=== PATIENT | female | born 2000 | race Two or more races ===

== ENCOUNTER 2025-01-02 18:40 | Emergency (ER) | payer MEDICAID, SELFPAY ==
[2025-01-02 18:57] VITALS: BP 130/80; PULSE 77; RESP 20; TEMP 37.1; O2SAT 96; BMI 20.5
--- NOTE | 2025-01-02 19:01 | PD.EDRME ---
Rapid Medical Screening Exam RME Arrival date/time: 01/02/25 18:40 Chief Complaint: Abdominal Pain Time Seen by Provider: 01/02/25 18:51 Vital signs: Vital Signs Temperature 98.7 F 01/02/25 18:57 Pulse Rate 77 01/02/25 18:57 Respiratory Rate 20 01/02/25 18:57 Blood Pressure 130/80 01/02/25 18:57 Pulse Oximetry (%) 96 01/02/25 18:57 Oxygen Delivery Method Room Air 01/02/25 18:57 [facility] Narrative: N/V all day today. Patient reports too much EtOH last night.
[2025-01-02 19:28] LABS: Basophils # (Auto) 0.1 Thou/mm3 (0.0-0.2); Basophils % (Auto) 0 % (0-2.5); Eosinophils # (Auto) 1.6 Thou/mm3 (0.0-0.5); Eosinophils % (Auto) 10 % (0-10); Hematocrit 41.6 % (36.0-46.0); Hemoglobin 15.1 g/dL (12.0-16.0); Immature Granulocytes % (Auto) 0 % (0-0); Immature Granulocytes Auto 0.06 Thou/mm3 (0.00-0.00); Lymphocytes # (Auto) 0.7 Thou/mm3 (1.0-4.8); Lymphocytes % (Auto) 4 % (10-50); Mean Corpuscular HGB Conc 36.3 g/dl (31.0-37.0); Mean Corpuscular Hemoglobin 31.3 pg (25.0-35.0); Mean Corpuscular Volume 86 fL (80-100); Monocytes # (Auto) 0.6 Thou/mm3 (0.0-0.8); Monocytes % (Auto) 3 % (0-12); Neutrophils # (Auto) 13.6 Thou/mm3 (1.8-7.7); Neutrophils % (Auto) 82 % (37-80); Nucleated Red Blood Cell % 0 /100 WBC (0); Platelet Count 255 Thou/mm3 (140-440); RDW Standard Deviation 40.4 fL (36.4-46.3); Red Blood Count 4.83 Miln/mm3 (4.00-5.20); White Blood Count 16.5 Thou/mm3 (3.6-11.0)
[2025-01-02] MEDS: ONDANSETRON ODT 4 MG TABRAP PO (19:32)
[2025-01-02 19:40] LABS: Collection Type, Urine Clean Catch
[2025-01-02 19:45] LABS: HCG Qualitative,Urine Negative
[2025-01-02 19:48] LABS: Bacteria,Urine Rare; Bilirubin,Urine Negative (Negative); Blood,Urine Negative (Negative); Clarity,Urine Clear (Clear/Hazy); Color,Urine Yellow (Lt Yel-Yel); Glucose, Urine Negative (Negative); Ketones,Urine 3+ (Negative); Leukocyte Esterase,Urine Negative (Negative); Nitrite,Urine Negative (Negative); Protein,Urine 1+ (Neg - Trace); RBC,Urine 7 /hpf (0-3); Specific Gravity,Urine 1.035 (1.001-1.035); Squamous Epithelial Cell,Urine 1 /hpf (0-5); Urobilinogen,Urine Negative mg/dL (0.0-1.0); WBC,Urine 8 /hpf (0-5)
[2025-01-02 19:52] LABS: Alanine Aminotransferase 19 U/L (10-49); Albumin, Serum 5.3 gm/dL (3.5-5.0); Albumin/Globulin Ratio 1.8 (1.2-2.2); Alkaline Phosphatase 65 U/L (46-116); Anion Gap 14 (7-16); Aspartate Amino Transferase 24 U/L (0-34); BUN/Creatinine Ratio 13 Ratio (12-20); Bilirubin,Total 1.2 mg/dL (0.3-1.2); Blood Urea Nitrogen 12 mg/dL (9-23); Calcium 9.5 mg/dL (8.3-10.6); Calcium (Corrected) 9.5 mg/dL (8.5-10.1); Carbon Dioxide 22.2 mMol/L (20.0-31.0); Chloride 108 mMol/L (98-107); Creatinine (Component) 0.9 mg/dL (0.6-1.3); Estimated Creatinine Clearance 83.7 mL/min (>60); Globulin 2.9 gm/dL (2.3-3.5); Glucose 125 mg/dL (74-106); Lipase 31 U/L (12-53); Osmolality,Calculated 287 (275-295); Potassium 3.9 mMol/L (3.4-5.1); Sodium 144 mMol/L (136-145); Total Protein 8.2 gm/dL (5.7-8.2); eGFR > 60 See Note
[2025-01-02] MEDS: SODIUM CHLORIDE 0.9% 1000 ML 1,000 ML 999 ML IV (20:22)
--- NOTE | 2025-01-02 20:24 | PD.EDABDPN ---
ED Abdominal Pain RME/HPI General Chief Complaint: Abdominal Pain Stated complaint: ABD PAIN, VOMITING X 1000 Time seen by provider: 01/02/25 18:51 Arrival date/time: 01/02/25 18:40 RME / HPI RME / HPI narrative: 24-year-old female patient with significant history of chronic alcoholism she told me that she used to drink every day however she is slowing down but last night she was drinking a lot and this morning woke up with vomiting at least 7 times nonbloody. Patient is now complaining of epigastric pain described as burning-like sensation with a moderate. Denies any other complaints. Related Data Previous Rx's ?Medication ?Instructions ?Recorded [id number] 3.5 1 drp ophthalmic (eye) QID #5 mL 03/13/23 mg/mL-10,000 unit/mL-0.1% eye drops famotidine 40 mg tablet (Pepcid) 40 mg PO BID #10 tabs 01/02/25 ondansetron HCl 4 mg tablet 4 mg PO Q8H PRN nausea and 01/02/25 vomiting 4 days #14 tabs Allergies Allergy/AdvReac Type Severity Reaction Status Date / Time No Known Allergies Allergy Verified 01/02/25 18:43 Review of Systems Review of Systems Narrative Review of Systems: Review of system reviewed and within normal limits except mentioned in HPI ED Exam Narrative Physical exam: VITAL SIGNS: Reviewed. GENERAL APPEARANCE: Alert and interactive, follows commands, no acute distress, HEAD AND FACE: Non-traumatic. ENT: PERRL, pink conjunctivitis, eyelid no trauma, Mucous membrane moist. NECK: Supple, nontender, no nuchal rigidity. CHEST: No tenderness, no crepitus, no paradoxical movement, no retractions. LUNGS: Clear, well ventilated, symmetric, no rales, no wheezing, no ronchi, no stridor, good breath sounds bilaterally. HEART: Regular rate, regular rhythm, no murmur, no gallops. ABDOMEN: Soft, positive bowel sounds, nondistended, no guarding, epigastric tenderness, no rebound, no masses, RECTAL: Deferred. GENITAL: Deferred. NEUROLOGICAL: Gross motor function intact sensory function intact, Appropriate for age. MUSCULOSKELETAL: low back nontender, full range of motion. EXTREMITIES: Nontender, full range of motion. SKIN: Color pink, dry, no rash, no lacerations, no abrasions, no contusions. LYMPHATICS: Deferred. Course Quality Measures none Orders Category Date Time Status IV [Insert IV] STAT Care 01/02/25 20:20 Active CBC Stat Lab 01/02/25 19:16 Completed CMP [Comprehensive Metabolic Panel] Stat Lab 01/02/25 19:16 Completed HCG Qualitative,Urine Stat Lab 01/02/25 19:25 Completed Lipase Stat Lab 01/02/25 19:16 Completed UA [Urinalysis] Stat Lab 01/02/25 19:25 Completed Metoclopramide [Reglan] Med 01/02/25 20:31 Once 10 mg PO X1 ONE Ondansetron Odt [Zofran Odt] Med 01/02/25 19:00 Discontinued 4 mg PO X1 ONE Sodium Chloride 0.9% 1000 ml [Ns] 1,000 ml Med 01/02/25 19:53 Active IV 999 mls/hr mg Hyd/Al Hyd/Sidney Susp [Maalox Susp] Med 01/02/25 20:30 Once 30 ml PO X1 ONE Vital Signs Vital signs: Vital Signs Temperature 98.7 F 01/02/25 18:57 Pulse Rate 77 01/02/25 18:57 Respiratory Rate 20 01/02/25 18:57 Blood Pressure 130/80 01/02/25 18:57 Pulse Oximetry (%) 96 01/02/25 18:57 Oxygen Delivery Method Room Air 01/02/25 18:57 Abdominal Pain MDM MDM Narrative MDM Narrative:: 24-year-old female patient with significant history of chronic alcoholism she told me that she used to drink every day however she is slowing down but last night she was drinking a lot and this morning woke up with vomiting at least 7 times nonbloody. Patient is now complaining of epigastric pain described as burning-like sensation with a moderate. Denies any other complaints. Patient's workup today all came back unremarkable including normal lipase. Was given IV fluids, Zofran Reglan and Maalox with complete resolution of symptoms. Patient data External records reviewed:: None Clinical information provided by:: patient Social determinants that could affect healthcare access:: alcohol use Patient has the following chronic illnesses:: None How is presenting disease/condition affected by chronic disease/condition?: exacerbated by Evaluation data The following diagnostics were reviewed and interpreted by me:: lab results Lab and/or radiology exams considered but not ordered:: None Interpretation Summary: Patient's workup is significant for leukocytosis 16.5 lipase normal and the rest of the labs unremarkable. Medications / Prescriptions Medications or Prescriptions considered but not ordered:: None Medication administrations:: Medication Administration History Al Hydrox/Mg Hydrox/Simethicone (Mg Hyd/Al Hyd/Sidney (Maalox Reg) Susp 30 Ml Udc) 30 ml PO X1 ONE Stop: 01/02/25 20:31 Sodium Chloride (Ns) 1,000 mls @ 999 mls/hr IV .Q1H1M ONE Stop: 01/02/25 20:53 Last Admin: 01/02/25 20:22 Dose: 999 mls/hr Documented By: CB Discontinued Medications Ondansetron HCl (Ondansetron Odt 4 Mg Tabrap) 4 mg PO X1 ONE; Protocol Stop: 01/02/25 19:01 Last Admin: 01/02/25 19:32 Dose: 4 mg Documented By: SHEN Jamesx, IV fluids, Zofran, and Reglan Consultations Consultation(s) initiated? (list below): No Diagnosis Differential diagnosis abdominal pain: abdominal pain and pancreatitis Most likely diagnosis given after review of the tests above:: Hangover effect Admission Indicated Admission indicated?: not indicated Explain why admission is indicated or not indicated:: Stable Admission Request Was there a request for admission?: No Disposition Plan Disposition Plan: Discharge Discharge Attestation Discharge Attestation: The patient and all family members were given an opportunity to ask questions and understood the discharge instructions. Discharge instructions specifically effects, indications for sooner follow up or return to the emergency department, and the expected course of current diagnosis. Patient condition: Stable Discharge Plan Plan Patient Disposition: HOME (Self Care) Discharge Disposition comment: Stable Prescriptions/Referrals Prescriptions/Med Rec: New famotidine [Pepcid] 40 mg tablet 40 mg PO BID Qty: 10 0RF ondansetron HCl 4 mg tablet 4 mg PO Q8H PRN (Reason: nausea and vomiting) 4 Days Qty: 14 0RF No Action neomycin-polymyxin B-dexameth 3.5mg/mL-10,000 unit/mL-0.1 % drops,suspension 1 drp ophthalmic (eye) QID Qty: 5 0RF Problem List Clinical Impression: Hangover effect Patient/Caregiver Discharge Instructions Discharge Activity: activity as tolerated Education Materials: Alcohol Addiction Additional Instructions: Thank you for the opportunity for serving you today. You are stable for discharged . You are advised to: Follow-up with your PCP in 1 to 2 days Return to ED for worsening of symptoms Increase oral fluids Take medication as prescribed Please stop abusing alcohol Print Language: Vietnamese Stand Alone Forms: Michaela Award Info., Patient Portal Info Letter PA/CELINE Supervising Physician PA/CELINE Supervising Physician: MD Romain
[2025-01-02] MEDS: METOCLOPRAMIDE 5 MG TABLET 10 MG PO (20:42)
[2025-01-02] MEDS: MG HYD/AL HYD/SIME (Maalox Reg) SUSP 30 ML UDC PO (20:43)
[2025-01-02 20:59] VITALS: BP 109/80; PULSE 108; RESP 16; O2SAT 100
== END 2025-01-02 20:59 | disposition home or self-care (01) ==
LOC: SERX 21:13
PROVIDERS: Physician Assistant; Emergency Provider Emergency Medicine; PCP Family Medicine
DX: F10.129 Alcohol abuse with intoxication, unspecified (principal)
CPT/HCPCS: 36415; 80053; 81001; 81025; 83690; 85025; 96360; 99284; J7030; Q0162; A9270